=== PATIENT | male | born 1985 | race Caucasian/White ===

== ENCOUNTER 2017-03-17 20:47 | Observation (INO) | payer OTHER ==
[2017-03-17] MEDS ORDERED: ACETAMINOPHEN TAB 500 MG TAB PO STA (20:57)
[2017-03-17] MEDS ORDERED: ONDANSETRON 4 MG/2 ML VIAL IVP STA (20:58)
--- NOTE | 2017-03-17 21:03 | ED ---
Overdose HPI - General Chief Complaint: Overdose Stated Complaint: overdose Time Seen by Provider: 03/17/17 20:50 Source: patient, EMS Mode of arrival: EMS - History of Present Illness Initial Comments: This is a 32-year-old male with a history of heroin abuse, DM, HTN who presents to the emergency department for overdose. Patient states he does not recall exactly when he used the heroin today however was found to be unresponsive. EMS arrived and had given 6 mg of Narcan in order to wake him up. The patient currently complains of chills and nausea. He does state he has been feeling feverish over the last few days and has been coughing. He states that the cough is chronic however. Denies any abdominal pain. No dysuria or hematuria. He does state that he's had a history of bacteremia and endocarditis in the past. No other complaints. - Related Data Allergies Allergy/AdvReac Type Severity Reaction Status Date / Time pioglitazone [From [facility]] Allergy Swelling Verified 03/17/17 21:28 Review of Systems ROS Statement: Those systems with pertinent positive or pertinent negative responses have been documented in the HPI. ROS Other: All systems not noted in ROS Statement are negative. Past Medical History Past Medical History: Diabetes Mellitus, Hypertension Additional Past Medical History / Comment(s): dug abuse History of Any Multi-Drug Resistant Organisms: None Reported General Exam - General Exam Comments Initial Comments: Constitutional: Awake alert Appears comfortable Head: Normocephalic atraumatic Eyes: no conjunctival injection No scleral icterus EOMI Neck: No JVD Supple Heart: Tachycardia normal S1-S2 no murmurs Lungs: Clear to auscultation bilaterally No wheezing No rales Abdomen: Soft nondistended nontender Extremities: Non edematous DP pulses intact Radial pulses intact, multiple track perez to the bilateral upper extremities Neuro: A&Ox3 No focal neurologic deficits Psych: Appropriate mood and affect Course Vital Signs 03/17/17 03/17/17 20:48 21:57 Temperature 101.1 F H 98.0 F Pulse Rate 120 H 96 Respiratory 16 16 Rate Blood Pressure 115/75 110/61 O2 Sat by Pulse 99 99 Oximetry - Reevaluation(s) Reevaluation #1: 03/17/17 21:27 EKG showing sinus tachycardia with a rate of 108. No abnormal ST segment changes or T-wave inversions. QTC 418. No other abnormal intervals. Medical Decision Making - Medical Decision Making Is a 32-year-old male who presents emergency department for heroin overdose. He 's been stable in the emergency department for last couple of hours. His mental status is improved to baseline. He did have a fever and was tachycardic when he came in emergency department his white count is 18. Does have a history of bacteremia and endocarditis and thus I like to keep him in the hospital. He was started on think and Zosyn. Dr. Morin accepts the admission. - Lab Data Result diagrams: 03/17/17 21:25 03/17/17 21:25 Lab Results 03/17/17 03/17/17 03/17/17 Range/Units 21:25 21:25 21:25 WBC 18.2 H (3.8-10.6) k/uL RBC 4.72 (4.30-5.90) m/uL Hgb 13.9 (13.0-17.5) gm/dL Hct 41.5 (39.0-53.0) % MCV 88.0 (80.0-100.0) fL MCH 29.4 (25.0-35.0) pg MCHC 33.4 (31.0-37.0) g/dL RDW 12.6 (11.5-15.5) % Plt Count 281 (150-450) k/uL Neutrophils % 89 % Lymphocytes % 4 % Monocytes % 4 % Eosinophils % 0 % Basophils % 0 % Neutrophils # 16.3 H (1.3-7.7) k/uL Lymphocytes # 0.8 L (1.0-4.8) k/uL Monocytes # 0.8 (0-1.0) k/uL Eosinophils # 0.1 (0-0.7) k/uL Basophils # 0.0 (0-0.2) k/uL PT (9.0-12.0) sec INR (<1.1) APTT (22.0-30.0) sec Sodium 132 L (137-145) mmol/L Potassium 5.2 H (3.5-5.1) mmol/L Chloride 98 (98-107) mmol/L Carbon Dioxide 21 L (22-30) mmol/L Anion Gap 13 mmol/L BUN 19 (9-20) mg/dL Creatinine 0.89 (0.66-1.25) mg/dL Est GFR (MDRD) Af Amer >60 (>60 ml/min/1.73 sqM) Est GFR (MDRD) Non-Af >60 (>60 ml/min/1.73 sqM) Glucose 581 H* (74-99) mg/dL Plasma Lactic Acid Misha (0.7-2.0) mmol/L Calcium 8.9 (8.4-10.2) mg/dL Total Bilirubin 0.5 (0.2-1.3) mg/dL AST 92 H (17-59) U/L ALT 61 (21-72) U/L Alkaline Phosphatase 138 H (38-126) U/L Troponin I (0.000-0.034) ng/mL Total Protein 7.3 (6.3-8.2) g/dL Albumin 4.0 (3.5-5.0) g/dL Urine Color Urine Appearance (Clear) Urine pH (5.0-8.0) Ur Specific [place] (1.001-1.035) Urine Protein (Negative) Urine Glucose (UA) (Negative) Urine Ketones (Negative) Urine Blood (Negative) Urine Nitrite (Negative) Urine Bilirubin (Negative) Urine Urobilinogen (<2.0) mg/dL Ur Leukocyte Esterase (Negative) Urine Opiates Screen (NotDetected) Ur Oxycodone Screen (NotDetected) Urine Methadone Screen (NotDetected) Ur Propoxyphene Screen (NotDetected) Ur Barbiturates Screen (NotDetected) U Tricyclic Antidepress (NotDetected) Ur Phencyclidine Scrn (NotDetected) Ur Amphetamines Screen (NotDetected) U Methamphetamines Scrn (NotDetected) U Benzodiazepines Scrn (NotDetected) Urine Cocaine Screen (NotDetected) U Marijuana (THC) Screen (NotDetected) Influenza Type A RNA Not Detected (Not Detectd) Influenza Type B (PCR) Not Detected (Not Detectd) 03/17/17 03/17/17 03/17/17 Range/Units 21:25 21:25 21:25 WBC (3.8-10.6) k/uL RBC (4.30-5.90) m/uL Hgb (13.0-17.5) gm/dL Hct (39.0-53.0) % MCV (80.0-100.0) fL MCH (25.0-35.0) pg MCHC (31.0-37.0) g/dL RDW (11.5-15.5) % Plt Count (150-450) k/uL Neutrophils % % Lymphocytes % % Monocytes % % Eosinophils % % Basophils % % Neutrophils # (1.3-7.7) k/uL Lymphocytes # (1.0-4.8) k/uL Monocytes # (0-1.0) k/uL Eosinophils # (0-0.7) k/uL Basophils # (0-0.2) k/uL PT 10.4 (9.0-12.0) sec INR 1.0 (<1.1) APTT 22.5 (22.0-30.0) sec Sodium (137-145) mmol/L Potassium (3.5-5.1) mmol/L Chloride (98-107) mmol/L Carbon Dioxide (22-30) mmol/L Anion Gap mmol/L BUN (9-20) mg/dL Creatinine (0.66-1.25) mg/dL Est GFR (MDRD) Af Amer (>60 ml/min/1.73 sqM) Est GFR (MDRD) Non-Af (>60 ml/min/1.73 sqM) Glucose (74-99) mg/dL Plasma Lactic Acid Misha 2.6 H* (0.7-2.0) mmol/L Calcium (8.4-10.2) mg/dL Total Bilirubin (0.2-1.3) mg/dL AST (17-59) U/L ALT (21-72) U/L Alkaline Phosphatase (38-126) U/L Troponin I <0.012 (0.000-0.034) ng/mL Total Protein (6.3-8.2) g/dL Albumin (3.5-5.0) g/dL Urine Color Urine Appearance (Clear) Urine pH (5.0-8.0) Ur Specific [place] (1.001-1.035) Urine Protein (Negative) Urine Glucose (UA) (Negative) Urine Ketones (Negative) Urine Blood (Negative) Urine Nitrite (Negative) Urine Bilirubin (Negative) Urine Urobilinogen (<2.0) mg/dL Ur Leukocyte Esterase (Negative) Urine Opiates Screen (NotDetected) Ur Oxycodone Screen (NotDetected) Urine Methadone Screen (NotDetected) Ur Propoxyphene Screen (NotDetected) Ur Barbiturates Screen (NotDetected) U Tricyclic Antidepress (NotDetected) Ur Phencyclidine Scrn (NotDetected) Ur Amphetamines Screen (NotDetected) U Methamphetamines Scrn (NotDetected) U Benzodiazepines Scrn (NotDetected) Urine Cocaine Screen (NotDetected) U Marijuana (THC) Screen (NotDetected) Influenza Type A RNA (Not Detectd) Influenza Type B (PCR) (Not Detectd) 03/17/17 Range/Units 21:35 WBC (3.8-10.6) k/uL RBC (4.30-5.90) m/uL Hgb (13.0-17.5) gm/dL Hct (39.0-53.0) % MCV (80.0-100.0) fL MCH (25.0-35.0) pg MCHC (31.0-37.0) g/dL RDW (11.5-15.5) % Plt Count (150-450) k/uL Neutrophils % % Lymphocytes % % Monocytes % % Eosinophils % % Basophils % % Neutrophils # (1.3-7.7) k/uL Lymphocytes # (1.0-4.8) k/uL Monocytes # (0-1.0) k/uL Eosinophils # (0-0.7) k/uL Basophils # (0-0.2) k/uL PT (9.0-12.0) sec INR (<1.1) APTT (22.0-30.0) sec Sodium (137-145) mmol/L Potassium (3.5-5.1) mmol/L Chloride (98-107) mmol/L Carbon Dioxide (22-30) mmol/L Anion Gap mmol/L BUN (9-20) mg/dL Creatinine (0.66-1.25) mg/dL Est GFR (MDRD) Af Amer (>60 ml/min/1.73 sqM) Est GFR (MDRD) Non-Af (>60 ml/min/1.73 sqM) Glucose (74-99) mg/dL Plasma Lactic Acid Misha (0.7-2.0) mmol/L Calcium (8.4-10.2) mg/dL Total Bilirubin (0.2-1.3) mg/dL AST (17-59) U/L ALT (21-72) U/L Alkaline Phosphatase (38-126) U/L Troponin I (0.000-0.034) ng/mL Total Protein (6.3-8.2) g/dL Albumin (3.5-5.0) g/dL Urine Color Colorless Urine Appearance Clear (Clear) Urine pH 5.5 (5.0-8.0) Ur Specific [place] 1.022 (1.001-1.035) Urine Protein Negative (Negative) Urine Glucose (UA) 4+ H (Negative) Urine Ketones Negative (Negative) Urine Blood Negative (Negative) Urine Nitrite Negative (Negative) Urine Bilirubin Negative (Negative) Urine Urobilinogen <2.0 (<2.0) mg/dL Ur Leukocyte Esterase Negative (Negative) Urine Opiates Screen Detected H (NotDetected) Ur Oxycodone Screen Not Detected (NotDetected) Urine Methadone Screen Not Detected (NotDetected) Ur Propoxyphene Screen Not Detected (NotDetected) Ur Barbiturates Screen Not Detected (NotDetected) U Tricyclic Antidepress Not Detected (NotDetected) Ur Phencyclidine Scrn Not Detected (NotDetected) Ur Amphetamines Screen Not Detected (NotDetected) U Methamphetamines Scrn Not Detected (NotDetected) U Benzodiazepines Scrn Not Detected (NotDetected) Urine Cocaine Screen Detected H (NotDetected) U Marijuana (THC) Screen Not Detected (NotDetected) Influenza Type A RNA (Not Detectd) Influenza Type B (PCR) (Not Detectd) Disposition Clinical Impression: Sepsis Disposition: ADMITTED IP TO THIS HOSP Condition: Stable
[2017-03-17] MEDS: SODIUM CHLORIDE 0.9% 500 ML IV SCH ×4 (21:35→23:30)
[2017-03-17 22:02] LABS: Basophils % (A) 0 %; CH 29.7; CHCM 33.9; Eosinophils # (A) 0.1 k/uL (0-0.7); Eosinophils % (A) 0 %; HCT 41.5 % (39.0-53.0); HDW 2.78; HGB 13.9 gm/dL (13.0-17.5); Luc # (Auto) 0.25; Luc % (Auto) 1; Lymphocytes # (A) 0.8 k/uL (1.0-4.8); Lymphocytes % (A) 4 %; MCH 29.4 pg (25.0-35.0); MCHC 33.4 g/dL (31.0-37.0); Mean Platelet Volume 7.8; Monocytes # (A) 0.8 k/uL (0-1.0); Monocytes % (A) 4 %; Neutrophils # (A) 16.3 k/uL (1.3-7.7); Neutrophils % (A) 89 %; RBC 4.72 m/uL (4.30-5.90); RDW 12.6 % (11.5-15.5); WBC 18.2 k/uL (3.8-10.6); WBC (Perox) 18.47
[2017-03-17 22:03] LABS: Appearance,Urine Clear (Clear); Bilirubin,Urine Negative (Negative); Glucose,Urine (UA) 4+ (Negative); Ketones,Urine Negative (Negative); Leukocyte Esterase,Urine Negative (Negative); Nitrite,Urine Negative (Negative); PH, Urine 5.5 (5.0-8.0); Protein,Urine Negative (Negative); Specific Gravity,Urine 1.022 (1.001-1.035); UA Billing (MACRO vs. MICRO) CHEM; Urobilinogen,Urine <2.0 mg/dL (<2.0)
[2017-03-17 22:07] LABS: ALT 61 U/L (21-72); AST 92 U/L (17-59); Alkaline Phosphatase 138 U/L (38-126); Anion Gap 13 mmol/L; Blood Urea Nitrogen 19 mg/dL (9-20); Calcium 8.9 mg/dL (8.4-10.2); Carbon Dioxide 21 mmol/L (22-30); Chloride 98 mmol/L (98-107); Non-African American GFR(MDRD) >60 (>60 ml/min/1.73 sqM); Potassium 5.2 mmol/L (3.5-5.1); Sodium 132 mmol/L (137-145); Total Bilirubin 0.5 mg/dL (0.2-1.3); Total Protein 7.3 g/dL (6.3-8.2)
[2017-03-17 22:11] LABS: Partial Thromboplastin Time 22.5 sec (22.0-30.0); Prothrombin Time 10.4 sec (9.0-12.0)
[2017-03-17 22:15] LABS: Glucose 581 mg/dL (74-99)
[2017-03-17] MEDS ORDERED: INSULIN LISPRO (humaLOG) 300 UNIT/3 ML VIAL SQ STA (22:16)
[2017-03-17] MEDS ORDERED: VANCOMYCIN 1,750 MG in SODIUM CHLORIDE 0.9% 250 ML IVPB STA (22:26)
[2017-03-17] MEDS ORDERED: IV VANCOMYCIN PER PHARMACY 1 EACH MISC MISCELLANE PRN (22:26)
[2017-03-17] MEDS ORDERED: ACETAMINOPHEN TAB 325 MG TAB PO PRN (22:34)
[2017-03-17] MEDS ORDERED: ONDANSETRON 4 MG/2 ML VIAL IVP PRN (22:34)
[2017-03-17] MEDS ORDERED: NALOXONE 0.4 MG/ML 1 ML VIAL IV PRN (22:34)
[2017-03-17 23:05] LABS: Glucose,Whole Blood 476 mg/dL (75-99)
--- NOTE | 2017-03-17 23:14 | XR ---
EXAM: XR Chest, 2 Views CLINICAL HISTORY: Reason: Fever TECHNIQUE: Frontal and lateral views of the chest. COMPARISON: No relevant prior studies available. FINDINGS: Lungs: No edema. No consolidation. Pleural space: Unremarkable. No pneumothorax. Cardiac and mediastinal silhouette: Unremarkable. No cardiomegaly. IMPRESSION: No acute cardiopulmonary findings.
[2017-03-18] MEDS ORDERED: PIPERACILLIN-TAZOBACTAM 3.375 GM in DEXTROSE/WATER 1 50ML.BAG IVPB ONE
[2017-03-18 00:32] LABS: Glucose,Whole Blood 373 mg/dL (75-99)
[2017-03-18] MEDS: SODIUM CHLORIDE 0.9% 1,000 ML IV SCH ×3 (00:55→14:24)
[2017-03-18 01:17] VITALS: BMI 29.2
[2017-03-18 07:12] LABS: Glucose,Whole Blood 280 mg/dL (75-99)
[2017-03-18] MEDS: INSULIN LISPRO (humaLOG) 300 UNIT/3 ML VIAL SQ SCH ×3 (07:31→17:26)
[2017-03-18 08:37] LABS: Hemoglobin A1C 10.4 % (4.2-6.1)
[2017-03-18] MEDS ORDERED: NICOTINE 21MG/24HR PATCH TRANSDERM SCH (09:00)
[2017-03-18] MEDS ORDERED: HALOPERIDOL LACTATE 5 MG/ML 1 ML VIAL IM PRN (09:10)
[2017-03-18] MEDS: LORazepam 2 MG/ML SYRINGE IV PRN ×2 (09:18→11:43)
[2017-03-18 11:38] LABS: Glucose,Whole Blood 393 mg/dL (75-99)
[2017-03-18 12:11] LABS: Basophils % (A) 0 %; CH 29.5; CHCM 34.2; Eosinophils # (A) 0.1 k/uL (0-0.7); Eosinophils % (A) 1 %; HCT 40.4 % (39.0-53.0); HDW 2.77; HGB 13.8 gm/dL (13.0-17.5); Luc # (Auto) 0.28; Luc % (Auto) 3; Lymphocytes # (A) 1.5 k/uL (1.0-4.8); Lymphocytes % (A) 14 %; MCH 29.5 pg (25.0-35.0); MCV 86.6 fL (80.0-100.0); Mean Platelet Volume 7.4; Monocytes # (A) 0.5 k/uL (0-1.0); Monocytes % (A) 4 %; Neutrophils # (A) 8.8 k/uL (1.3-7.7); Neutrophils % (A) 79 %; RBC 4.67 m/uL (4.30-5.90); RDW 12.5 % (11.5-15.5); WBC 11.2 k/uL (3.8-10.6); WBC (Perox) 11.43
[2017-03-18 12:18] LABS: Anion Gap 9 mmol/L; Blood Urea Nitrogen 15 mg/dL (9-20); Calcium 9.1 mg/dL (8.4-10.2); Carbon Dioxide 26 mmol/L (22-30); Chloride 103 mmol/L (98-107); Glucose 386 mg/dL (74-99); Non-African American GFR(MDRD) >60 (>60 ml/min/1.73 sqM); Potassium 4.1 mmol/L (3.5-5.1); Sodium 138 mmol/L (137-145)
[2017-03-18 15:38] VITALS: BP 112/66; PULSE 94; RESP 16; TEMP 98.1
[2017-03-18] MEDS ORDERED: VANCOMYCIN 1,750 MG in SODIUM CHLORIDE 0.9% 250 ML IVPB SCH (16:30)
[2017-03-18 17:10] LABS: Glucose,Whole Blood 285 mg/dL (75-99)
[2017-03-18] MEDS ORDERED: INSULIN DETEMIR 100 UNIT/ML 10 ML VIAL SQ SCH (21:00)
--- NOTE | 2017-03-19 07:30 | HP ---
DATE OF ADMISSION: Chief complaint is drug overdose. HISTORY OF PRESENT ILLNESS: Mr. Odell is a 32-year-old male with a known history of heroin abuse and diabetes mellitus and hypertension, was brought to the hospital with drug overdose. Patient was initially unresponsive and patient was given 6 mg of Narcan in order to wake him up. Otherwise, patient's UDS positive for opiates as well as cocaine. Patient was initially found to have hyperglycemia. Patient is not taking his insulin dosing as his insurance is not covering it. Otherwise, patient did complain of cough without much sputum production. No complaints of abdominal pain. No nausea, diarrhea. No dysuria. Patient says that he has history of bacteremia and endocarditis in the past. Patient is otherwise a poor historian. Patient was found to have significantly elevated WBC count to 18.2 and blood sugar was 581 on admission and also with lactic acidosis. Patient had a chest x-ray showed no cardiopulmonary process. UA negative for infection. Blood cultures are pending at this time. Patient was given a dose of vancomycin and Zosyn in the ER. No other source of infection has been identified so far. REVIEW OF SYSTEMS: CONSTITUTIONAL: No fever. No chills. RESPIRATORY: Patient does have cough, no sputum production. CARDIOVASCULAR: No chest pain. No leg swelling. No palpitations. GENITOURINARY: Negative. ENDOCRINE: Negative. PSYCHIATRY: Negative. All other review of systems negative except as above. Patient, otherwise a poor historian. PAST MEDICAL HISTORY: Hypertension, insulin-dependent diabetes type 2, history of endocarditis as per the patient, heroin abuse. PAST SURGICAL HISTORY: None. SOCIAL HISTORY: Patient does use heroin IV as well as opiates and cocaine. Patient does smoke 1/2 pack to 1 pack per day, occasional alcohol use, denied any other drugs. Allergies to PIOGLITAZONE. Home medication include: 1. Neurontin. 2. NovoLog. 3. Levemir. 4. Wellbutrin. 5. Zestril. 6. Clonidine. FAMILY HISTORY: Denied any history of hypertension, diabetes mellitus or heart disease in the family. PHYSICAL EXAMINATION: A 32-year-old male lying in bed comfortably, awake, alert, oriented x3. Appears to be in no evident distress. ( ) at this time. VITALS: Blood pressure is 115/75, pulse is 120, respirations 16, temperature afebrile, pulse ox 99% room air on admission. HEENT: Atraumatic, normocephalic. Neck is supple. No JVD. CVS EXAM: S1, S2 heard. No murmurs or gallop. LUNGS: Bilateral air entry is present. No wheezing. No crackles. ABDOMEN: Soft, nontender, bowel sounds present. 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 No focal deficits. EXTREMITIES: No edema. Pulses palpable bilaterally, no clubbing or cyanosis. PSYCHIATRIC: Cooperative. LABORATORY DATA: WBC 18.2, hemoglobin 13.9, platelets 281, INR 1.0. Sodium 132, potassium 5.2, chloride 98, bicarb is 21. Lactic acid is 2.6. Blood sugar is 581, UA negative. UDS is positive for opiates and cocaine. Influenza A and B PCR negative. Chest x-ray no acute cardiopulmonary process and EKG sinus tachycardia. IMPRESSION: 1. Altered mental status, possible metabolic toxic encephalopathy secondary to drug overdose. 2. Drug overdose with opiates and cocaine. Currently, patient is more awake. 3. Leukocytosis most likely reactive, improved now. No signs of infection noted. Will follow blood cultures as well. 4. Hypovolemic hyponatremia. 5. Hyperkalemia. 6. Mild metabolic acidosis secondary to lactic acidosis. 7. Hyperglycemia with uncontrolled hypertension, HbA1c of 10.4. 8. Noncompliant with medications. 9. Polysubstance abuse. 10. Heroin abuse. 11. Cocaine abuse. 12. Hypertension. 13. History of endocarditis as per the patient. DISCUSSION AND PLAN: Patient will be continued on IV fluids. Leukocytosis improved. No source of infection has been identified. Follow up on blood cultures and but will hold antibiotics at this time and follow up closely. Continued with insulin dosing for better blood sugar control. Further recommendations based on the clinical course. Prognosis guarded.
== END 2017-03-18 18:35 | disposition left against medical advice (07) ==
LOC: EC 20:47 → 4MS4W 22:35 → INTOOBSV 22:35
PROVIDERS: ADMIT Hospitalist; ATTEND Hospitalist
DX: R41.82 Altered mental status, unspecified (principal); T40.1X1A Poisoning by heroin, accidental (unintentional), initial encounter; T40.601A Poisoning by unspecified narcotics, accidental (unintentional), initial encounter; D72.829 Elevated white blood cell count, unspecified; G92 Toxic encephalopathy; E86.1 Hypovolemia; E87.1 Hypo-osmolality and hyponatremia; E87.5 Hyperkalemia; E87.2 Acidosis; E11.65 Type 2 diabetes mellitus with hyperglycemia; I10 Essential (primary) hypertension; Z91.14 Patient's other noncompliance with medication regimen; T38.3X6A Underdosing of insulin and oral hypoglycemic [antidiabetic] drugs, initial encounter; F19.10 Other psychoactive substance abuse, uncomplicated; R00.0 Tachycardia, unspecified; R11.0 Nausea; R05 Cough; R50.9 Fever, unspecified; Z79.4 Long term (current) use of insulin; Z86.79 Personal history of other diseases of the circulatory system; Z88.8 Allergy status to other drugs, medicaments and biological substances; Z86.19 Personal history of other infectious and parasitic diseases; Z79.899 Other long term (current) drug therapy; F17.200 Nicotine dependence, unspecified, uncomplicated; F14.10 Cocaine abuse, uncomplicated; F11.10 Opioid abuse, uncomplicated
CPT/HCPCS: 96366 ×2; 96361 ×3; 96376 ×2; 96375 ×2; 96365; 99285; 36415; 93005; 80053; 80048; 83036; 83605 ×2; 84484 ×2; 85025 ×2; 85610; 85730; 81003; 87040 ×2; 80306; 87086; 87502; 71020; G0378 ×2; S4990; J3370; J2060; J2405; J2543